=== PATIENT | female | born 1950 | race Caucasian/White ===

== ENCOUNTER 2017-10-11 21:29 | Inpatient (IN) | payer OTHER, MEDICARE ==
[~2017-10-11] VITALS: Ht 167.6 cm; Wt 70.6 kg
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
[2017-10-11 21:30] VITALS: BP 208/90
[2017-10-11] MEDS ORDERED: METFORMIN500 MG PO (21:34)
[2017-10-11 21:45] LABS: BILIRUBIN NEGATIVE (NEGATIVE); BLOOD TRACE-INTACT (NEGATIVE); CLARITY SL CLOUDY (CLEAR); COLOR YELLOW (YELLOW); GLUCOSE 3+ (NEGATIVE); KETONE NEGATIVE (NEGATIVE); LEUKO ESTERASE NEGATIVE (NEGATIVE); NITRITE NEGATIVE (NEGATIVE); SPECIFIC GRAVITY 1.015 (1.005-1.030)
[2017-10-11 21:59] LABS: BACTERIA TRACE; WBC 0-2 wbc/hpf (0-5)
[2017-10-11 22:03] LABS: URINE AMPHETAMINES < 1000 (1000ng/ml); URINE BARBITURATES < 200 (200ng/ml); URINE BENZODIAZEPINES < 200 (200ng/ml); URINE CANNABINOIDS (THC) < 50 (50ng/ml); URINE COCAINE < 300 (300ng/ml); URINE METHADONE < 300 (300ng/ml); URINE OPIATES < 300 (300ng/ml)
[2017-10-11 22:04] LABS: URINE PHENCYCLIDINE < 25 (25ng/ml)
[2017-10-11 22:05] LABS: BASO # 0.1 10*3/uL (0.0-0.1); BASO % 1.2 % (0.0-1.0); EOS # 0.2 10*3/uL (0.0-0.4); EOS % 2.8 % (1.0-4.0); HEMATOCRIT 32.8 % (37.0-47.0); HEMOGLOBIN 11.3 g/dl (12.0-16.0); LYMPH # 1.4 10*3/uL (1.3-4.4); LYMPH % 23.5 % (27.0-41.0); MEAN CELL VOLUME 84.5 fl (81.0-99.0); MEAN CORPUSCULAR HGB 29.1 pg (27.0-31.0); MEAN CORPUSCULAR HGB CONC 34.5 g/dl (33.0-37.0); MEAN PLATELET VOLUME 9.6 fl (9.6-12.3); MONO # 0.5 10*3/uL (0.1-1.0); MONO % 7.7 % (3.0-9.0); NEUT # 3.9 10*3/uL (2.3-7.9); NEUT % 64.6 % (47.0-73.0); PLATELET COUNT AUTOMATED 220 10*3/uL (130-400); RED BLOOD COUNT 3.88 10*6/uL (4.10-5.10); RED CELL DISTRI WIDTH 12.8 % (0-14.5)
[2017-10-11 22:15] LABS: ACT PARTIAL THROMBO TIME 22.7 SECONDS (20.8-31.5)
[2017-10-11 22:23] LABS: ALBUMIN 3.5 gm/dl (3.1-4.5); ALKALINE PHOSPHATASE 122 U/L (45-117); BUN 14 mg/dl (7-24); CHLORIDE 105 mmol/L (98-107); CREATININE 1.17 mg/dL (0.55-1.02); POTASSIUM 3.4 mmol/L (3.5-5.1); SGOT/AST 11 IU/L (3-35); SGPT/ALT 17 U/L (12-78); SODIUM 140 mmol/L (136-145)
[2017-10-11 22:27] LABS: ACETAMINOPHEN (TYLENOL) < 2.0 ug/ml (10-30); ETHYL ALCOHOL < 3.0 mg/dl (<3); TROPONIN I < 0.015 ng/ml (<0.045)
[2017-10-11 22:30] VITALS: BP 174/78
[2017-10-11 23:30] VITALS: BP 182/92
[2017-10-12] VITALS: BP 182/92
[2017-10-12 03:37] LABS: BASO # 0.1 10*3/uL (0.0-0.1); EOS # 0.2 10*3/uL (0.0-0.4); EOS % 2.2 % (1.0-4.0); HEMATOCRIT 28.7 % (37.0-47.0); HEMOGLOBIN 9.8 g/dl (12.0-16.0); LYMPH % 29.3 % (27.0-41.0); MEAN CELL VOLUME 84.9 fl (81.0-99.0); MEAN CORPUSCULAR HGB CONC 34.1 g/dl (33.0-37.0); MEAN PLATELET VOLUME 9.2 fl (9.6-12.3); MONO # 0.5 10*3/uL (0.1-1.0); MONO % 7.7 % (3.0-9.0); NEUT # 4.1 10*3/uL (2.3-7.9); NEUT % 59.5 % (47.0-73.0); PLATELET COUNT AUTOMATED 183 10*3/uL (130-400); RED BLOOD COUNT 3.38 10*6/uL (4.10-5.10); RED CELL DISTRI WIDTH 12.8 % (0-14.5); WHITE BLOOD COUNT 6.9 10*3/uL (4.8-10.8)
[2017-10-12 03:58] LABS: ALKALINE PHOSPHATASE 97 U/L (45-117); BUN 16 mg/dl (7-24); CHLORIDE 107 mmol/L (98-107); CHOLESTEROL 186 mg/dL (<200); CREATININE 1.04 mg/dL (0.55-1.02); HDL CHOLESTEROL 34 mg/dl (40-60); LDL CHOLESTEROL 121 mg/dL (9-159); PHOSPHOROUS 2.9 mg/dL (2.5-4.9); POTASSIUM 3.7 mmol/L (3.5-5.1); SGOT/AST 6 IU/L (3-35); SGPT/ALT 15 U/L (12-78); SODIUM 140 mmol/L (136-145); TOTAL PROTEIN 6.6 gm/dL (6.4-8.2); TRIGLYCERIDES 153 mg/dl (<150); VLDL CHOLESTEROL 31 mg/dL (6-40)
[2017-10-12 04:00] VITALS: BP 168/69
[2017-10-12 04:04] LABS: THYROID STIM HORMONE (HS) 0.838 uIU/ml (0.358-4.75)
[2017-10-12 04:09] LABS: ACT PARTIAL THROMBO TIME 22.7 SECONDS (20.8-31.5)
[2017-10-12 06:39] LABS: VITAMIN D, 25-HYDROXY 10.7 ng/mL (30-100)
[2017-10-12 08:00] VITALS: BP 132/58
[2017-10-12 12:00] VITALS: BP 138/60
[2017-10-12 20:00] VITALS: BP 149/60
[2017-10-13] VITALS: BP 116/53
[2017-10-13 06:31] LABS: BASO # 0.1 10*3/uL (0.0-0.1); BASO % 0.9 % (0.0-1.0); EOS # 0.2 10*3/uL (0.0-0.4); EOS % 2.7 % (1.0-4.0); HEMATOCRIT 26.1 % (37.0-47.0); HEMOGLOBIN 8.8 g/dl (12.0-16.0); LYMPH # 2.6 10*3/uL (1.3-4.4); LYMPH % 41.1 % (27.0-41.0); MEAN CELL VOLUME 87.3 fl (81.0-99.0); MEAN CORPUSCULAR HGB 29.4 pg (27.0-31.0); MEAN CORPUSCULAR HGB CONC 33.7 g/dl (33.0-37.0); MEAN PLATELET VOLUME 9.9 fl (9.6-12.3); MONO # 0.5 10*3/uL (0.1-1.0); MONO % 7.1 % (3.0-9.0); NEUT # 3.1 10*3/uL (2.3-7.9); NEUT % 47.9 % (47.0-73.0); PLATELET COUNT AUTOMATED 164 10*3/uL (130-400); RED BLOOD COUNT 2.99 10*6/uL (4.10-5.10); RED CELL DISTRI WIDTH 13.3 % (0-14.5); WHITE BLOOD COUNT 6.4 10*3/uL (4.8-10.8)
[2017-10-13 06:55] LABS: CHLORIDE 114 mmol/L (98-107); POTASSIUM 3.4 mmol/L (3.5-5.1); SODIUM 145 mmol/L (136-145)
[2017-10-13 07:08] LABS: BUN 14 mg/dl (7-24); CREATININE 0.91 mg/dL (0.55-1.02)
[2017-10-13 08:00] VITALS: BP 210/80
[2017-10-13 12:00] VITALS: BP 140/60
[2017-10-13] MEDS ORDERED: MIRTAZAPINE15 M2 PO (16:56)
[2017-10-13] MEDS ORDERED: LISINOPRIL10 M1 PO (16:56)
[2017-10-13] MEDS ORDERED: CARVEDILOL3.125 MG PO (16:56)
[2017-10-13] MEDS ORDERED: NATURE'S BLEND F1 MG PO (16:56)
[2017-10-13] MEDS ORDERED: VITAMIN D-32000 UNIT PO (16:56)
== END 2017-10-13 17:10 | disposition home health service (06) | DRG 637 ==
LOC: ED 21:29 → EDHOLD 22:51 → 4E 22:51
PROVIDERS: Internal Medicine; Student in an Organized Health Care Education/Training Program
DX: E11.65 Type 2 diabetes mellitus with hyperglycemia (principal); N17.0 Acute kidney failure with tubular necrosis; G93.41 Metabolic encephalopathy; E44.0 Moderate protein-calorie malnutrition; F33.2 Major depressive disorder, recurrent severe without psychotic features; I16.1 Hypertensive emergency; R55 Syncope and collapse; E86.0 Dehydration; D64.9 Anemia, unspecified; E87.6 Hypokalemia; R31.29 Other microscopic hematuria; E66.3 Overweight; E78.5 Hyperlipidemia, unspecified; E55.9 Vitamin D deficiency, unspecified; E53.8 Deficiency of other specified B group vitamins; V49.88XA Car occupant (driver) (passenger) injured in other specified transport accidents, initial encounter; Y93.89 Activity, other specified; Z68.26 Body mass index [BMI] 26.0-26.9, adult; Y92.481 Parking lot as the place of occurrence of the external cause; Y99.8 Other external cause status

== ENCOUNTER 2017-10-13 16:46 | Inpatient (IN) | payer MEDICARE, OTHER ==
[~2017-10-13] VITALS: Ht 167.6 cm; Wt 73.5 kg
--- NOTE | ~2017-10-13 | PR ---
[place], [place] PROGRESS NOTE [id number] UNIT #: [id number] ROOM: 311 DOCTOR: BROOKS CHOUDHURY MD BIRTHDATE: [birth year] DOS: 10/24/2017 PSYCHIATRIC PROGRESS NOTE SUBJECTIVE: The patient seen and spoke with the staff. Per staff, the patient is doing good. No problems or issues. Medication compliant. She slept well last night. I easily redirectable. The patient was pleasant and cooperative. She was in the day area. She reports doing "fine." She denied depressed mood or hopelessness. Denied any other neurovegetative signs and symptoms of depression. She reports good sleep and appetite. MENTAL STATUS EXAMINATION: Pleasant, cooperative, described her mood as "fine." Affect, mood congruent. Thought process goal directed. No flight of ideas, loosening of association. She denied auditory or visual hallucination. No delusions or paranoia noted. She denied suicidal ideation, intent or plan. She also denied any homicidal ideation, intent or plan. PLAN:: 1. Continue current medication and care. 2. Encourage activity in groups. 3. Final medication management and discharge plan per the regular team. BROOKS CHOUDHURY MD CM:PNTRANS 35 [phone] BROOKS CHOUDHURY MD 10/24/172235 interface
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
--- NOTE | ~2017-10-13 | PR ---
[place], [place] PROGRESS NOTE NAME: [facility]ON [id number] UNIT #: [id number] ROOM: 311 DOCTOR: BROOKS CHOUDHURY MD BIRTHDATE: [birth year] DOS: SUBJECTIVE: The patient seen and spoke with the staff. Per staff, patient has slept well, calm and cooperative, some confusion. No behavior problems or issues, slept well last night. The patient was pleasant and cooperative. She was in the day area. She reports doing well. She reports good sleep and appetite. Denied depressed mood or hopelessness. Denied any other neurovegetative signs, symptoms of depression. She was not in any distress. MENTAL STATUS EXAMINATION: The patient was pleasant and cooperative. She was alert, oriented to month and year. She described her mood as "fine." Affect, mood congruent. Thought process goal directed. No flight of ideas or loosening of association. She denied auditory or visual hallucination. No delusion or paranoia noted. She denied suicidal ideation, intent or plan. She also denied homicidal ideation, intent or plan. PLAN: 1. Continue current medication and care. 2. Encourage activities and groups. 3. Continue redirection and supportive care. BROOKS CHOUDHURY MD CM:PNTRANS [id number] BROOKS CHOUDHURY MD 10/24/17 0519 interface
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
--- NOTE | ~2017-10-13 | PR ---
[place], [place] PROGRESS NOTE NAME: [id number] UNIT #: [id number] ROOM: 311 DOCTOR: LUCIA BOYER DO BIRTHDATE: [birth year] DOS: 10/20/2017 CHIEF COMPLAINT: "I feel tired." SUMMARY OF VISIT: The patient was interviewed in dining room where she was participating in group. She continues to respond but her memory does appear to fluctuate. Generally, she alert and oriented to person, not to time or place. Her sister did come in to visit her yesterday and she commented about that. Continued to discuss increasing her strength and attempting to get her into rehab to help strengthen her. MENTAL STATUS: She remains alert and oriented to self with improved mood. There are memory changes, seem to occur throughout the day. There are no symptoms of giovanna or hypomania, no delusions or paranoia at this time. PLAN: We will continue her current psychotropic regimen at this time and continue to monitor the patient and encourage her in group and individual activities, returning to the least restrictive environment when psychiatrically stable. LUCIA BOYER DO ELIZABETH LEROY MD CM:PNLEOLA 1145 1349 LUCIA BOYER DO 10/20/17 1348 interface
--- NOTE | ~2017-10-13 | PR ---
[place], [place] PROGRESS NOTE NAME: JACI JOHNSON UNIT #: [id number] ROOM: 311 DOCTOR: ELIZABETH LEROY MD BIRTHDATE: [birth year] DOS: 10/16/2017 CHIEF COMPLAINT: "I hope I get to go home soon." SUMMARY OF THE VISIT: The patient was interviewed as she sat with some female peers watching television. She stopped and engaged in conversation. At this time, she appeared to be alert and oriented times 3. She was bright, pleasant and conversant. She was able to tell me how long she has been in the hospital, what she had for breakfast. She is anxious to return home stating that she lives close to her sister. Of note is her mental status seems to fluctuate. Nurses' notes indicate that she was alert to person only late last evening and was very confused. My other exams prior to this one this morning, have also been . She is alert to person, may be place and that she knows she is in the hospital, but not which hospital. I do fear that this could be potentially Lewy body dementia given the marked fluctuation in her sensorium. She is tolerating the current medication regimen well. MENTAL STATUS: She is alert and oriented times 3. Mood does seem to be trending towards euthymia. Affect is more appropriate. There is no giovanna, hypomania or psychosis. This morning during my exam, she seemed with fairly decent memory. PLAN: I will go ahead and augment the Exelon patch with Namenda 5 mg in the day and plan to bring this gradually up as needed and as tolerated. We will continue to document her mental status fluctuations. Truly if she is having periods where she is alert only to self, she cannot return home, need to make certain that we make recommendations for the safest possible disposition for her upon discharge. ELIZABETH LEROY MD CM:PNTRANS [id number] ELIZABETH LEROY MD 10/16/17 1119 interface
--- NOTE | ~2017-10-13 | PR ---
[place], [place] PROGRESS NOTE NAME: JACI JOHNSON UNIT #: [id number] ROOM: 311 DOCTOR: ELIZABETH LEROY MD BIRTHDATE: [birth year] DOS: 10/17/2017 CHIEF COMPLAINT: "I want to go home, will I be able to go home soon?" SUMMARY OF THE VISIT: The patient was interviewed as she sat in the dining room amongst female peers. She engaged readily in conversation. She reports that she is anxious to return home. She could not tell me this morning how long she has been here. When asked if her sister had visited, she told me no. Quickly, one of the female peers that were sitting next to her told her that this was not true named her sister's name and stated that she was here yesterday and had a lengthy visit with her. The patient shrugged her shoulders and stated I forget a lot. MENTAL STATUS: She is alert and oriented to person, possibly place, not to time this morning. She is rather vague and limited in her responses, more confused this morning than yesterday. She is tolerating the current medication regimen well. I see no giovanna, hypomania or psychosis. Short term memory is poor and she processes at times slowly. PLAN: I will increase Namenda from 5 mg a day to 5 mg twice a day, increase Exelon patch to its maximum dose of 13.3 mg daily, engage in individual and kulkarni milieu activities with the plan to return to the least restrictive environment when psychiatrically stable. ELIZABETH LEROY MD CM:PNTRANS ELIZABETH LEROY MD 10/17/1725 interface
--- NOTE | ~2017-10-13 | CON ---
[place], [place] REPORT OF CONSULTATION NAME: JACI JOHNSON UNIT #: [id number] ROOM: 311 DOCTOR: LOUIS DIANA ED.D (JUAN JOSE) BIRTHDATE: [birth year] DOS: 10/18/2017 HISTORY OF PRESENT ILLNESS: The patient is a 66-year-old female referred by Dr. Leroy for competency evaluation. At the present time, she is on the [facility] at [facility]. The patient states she is single and has no children. She has 4 sisters; however. Her family physician is Dr. Ku and her medical history is pertinent for diabetes mellitus, congestive heart failure, hypertension, vitamin D deficiency and dementia -- Alzheimer's type. Her medications include Namenda, Exelon, lisinopril, vitamin D. The patient states she drinks no alcoholic beverages and smokes no cigarettes or use any tobacco related products. 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 This patient was awake, alert and oriented to person only. She believes she was in [place], [place] and she stated that it is 2016. I asked her why she was in [place]; she stated she comes here once a year. She is clearly not competent to make informed healthcare decisions. Her short and long-term memory appear to be impaired and she also has some hallucinations. In my opinion, all decision should be made by her healthcare power of patent prosecution attorney. DIAGNOSIS: Major neurocognitive disorder -- Alzheimer's dementia. Thank you very much for this consult. LOUIS DIANA ED.D CM:CONSTR:REPORT OF CONSULTATION 1148 10/18/17 1209 interface ELIZABETH LEROY MD
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
--- NOTE | ~2017-10-13 | PR ---
[place], [place] PROGRESS NOTE NAME: JACI JOHNSON UNIT #: [id number] ROOM: 311 DOCTOR: ELIZABETH LEROY MD BIRTHDATE: [birth year] DOS: 10/18/2017 CHIEF COMPLAINT: "____" SUMMARY OF THE VISIT: The patient was interviewed in the dining room where she was sitting with several female peers. She continues to be rather bright and tries to confabulate. She does still seem to have a fluctuation in her mental status and this morning, she was alert and oriented to person, not necessarily place and certainly not time. It is becoming more and more evident that she has a significant cognition issue and family has been very concerned about this and hopeful that we will help with placement. MENTAL STATUS: She remains alert and oriented to self only at the present time. Mood though does seem to be brighter. Affect more appropriate. There is no giovanna or psychosis noted at this time. She does make some bizarre statements though and this may be more related to her cognitive decline. Short-term memory is extremely poor. PLAN: I will go ahead and increase Namenda to 10 mg in the morning and 5 mg at night, augmenting the effectiveness of the Exelon. Continue to engage in individual and kulkarni milieu activities, returning to the least restrictive environment when psychiatrically stable. ELIZABETH LEROY MD CM:PNTRANS [id number] ELIZABETH LEROY MD 10/19/17 0646 interface
--- NOTE | ~2017-10-13 | PR ---
[place], [place] PROGRESS NOTE NAME: [id number] UNIT #: [id number] ROOM: 311 DOCTOR: LUCIA BOYER DO BIRTHDATE: [birth year] DOS: 10/21/2017 CHIEF COMPLAINT: "I feel okay." SUMMARY OF VISIT: The patient was interviewed in the dining kaur. She states that she appears to be better. We discussed returning to ____ and discussed strengthening of her muscles and working with PT and OT. Her mood did appear to change as we discussed her discharge potentially. MENTAL STATUS: She remains alert and oriented to self with improved mood. There are memory changes that appear to occur throughout the day and no symptoms of giovanna or hypomania without delusions or paranoia at this time. PLAN: I will continue her current psychotropic regimen at this time and continued to monitor the patient and ____ according to staff, her mood appeared to be somewhat depressed at the news that we are planning for her discharge. She states that she is very comfortable here and likes it. We will plan to encourage her in group and individual activities, returning to the least restrictive environment when psychiatrically stable. LUCIA BOYER DO ELIZABETH LEROY MD CM:PNLEOLA [id number] LUCIA BOYER DO 10/22/17 0235 interface
--- NOTE | ~2017-10-13 | PR ---
[place], [place] PROGRESS NOTE [id number] UNIT #: [id number] ROOM: 311 DOCTOR: LUCIA BOYER DO BIRTHDATE: [birth year] DOS: 10/19/2017 CHIEF COMPLAINT: "I cannot remember my sister visiting." SUMMARY OF THE VISIT: The patient was interviewed in the dining room where she finished her breakfast. She continues to be bright with confabulations. Her memory does seem to fluctuate. She is generally alert and oriented to person but not to time or place. She states that she does not remember that her sister had come in to see her. We discussed she needs to improve her strength and discussed potentially getting her into a rehab. MENTAL STATUS: She remains alert and oriented to self only. Mood does seem to be brighter. Her memory does seem to change throughout the day. There are no symptoms of giovanna or hypomania at this time. There are no symptoms of delusions, paranoia. PLAN: We will renew her Ativan as needed and increase her Namenda to 10 mg twice daily and continue to monitor to maximize the potential benefits. We will continue to engage her in individual and group activities, returning to the least restrictive environment when psychiatrically stable. LUCIA BOYER DO ELIZABETH LEROY MD CM:PNLEOLA [id number] LUCIA BOYER DO 10/19/17 1231 interface
--- NOTE | ~2017-10-13 | PR ---
[place], [place] PROGRESS NOTE NAME: [id number] UNIT #: [id number] ROOM: 311 DOCTOR: ELIZABETH LEROY MD BIRTHDATE: [birth year] DOS: 10/25/2017 CHIEF COMPLAINT: "Oh, good morning there, how are you?" SUMMARY OF THE VISIT: The patient was interviewed in the dining area where she had just completed breakfast. She engaged readily in conversation. She reported no issues. She reports good sleep and appetite. She could not tell me how long she has been here or why she was actually in the hospital. MENTAL STATUS: She is alert and oriented to person, possibly place, not time. Mood does seem to be trending towards euthymia. Affect is more appropriate. There is no giovanna, hypomania or psychosis. Short term memory remains poor. PLAN: I will maintain her current psychotropic regimen, continue to engage in individual and kulkarni milieu activity, planning to discharge then to the least restrictive environment when psychiatrically stable. ELIZABETH LEROY MD CM:PNTRANS [id number] ELIZABETH LEROY MD 10/25/17 1129 interface
[~2017-10-13 16:46] MED LIST: METFORMIN500 MG PO
[2017-10-13] MEDS ORDERED: LISINOPRIL10 M1 PO (16:56)
[2017-10-13] MEDS ORDERED: VITAMIN D-32000 UNIT PO (16:56)
[2017-10-13] MEDS ORDERED: CARVEDILOL3.125 MG PO (16:56)
[2017-10-13] MEDS ORDERED: MIRTAZAPINE15 M2 PO (16:56)
[2017-10-13] MEDS ORDERED: NATURE'S BLEND F1 MG PO (16:56)
[2017-10-13 17:40] VITALS: BP 204/92
[2017-10-13 20:00] VITALS: BP 150/61
[2017-10-14 07:32] LABS: BASO % 0.7 % (0.0-1.0); EOS # 0.1 10*3/uL (0.0-0.4); EOS % 1.3 % (1.0-4.0); HEMOGLOBIN 9.4 g/dl (12.0-16.0); LYMPH % 32.8 % (27.0-41.0); MEAN CELL VOLUME 88.9 fl (81.0-99.0); MEAN CORPUSCULAR HGB 29.8 pg (27.0-31.0); MEAN CORPUSCULAR HGB CONC 33.6 g/dl (33.0-37.0); MEAN PLATELET VOLUME 10.1 fl (9.6-12.3); MONO # 0.4 10*3/uL (0.1-1.0); MONO % 6.5 % (3.0-9.0); NEUT # 3.5 10*3/uL (2.3-7.9); NEUT % 58.4 % (47.0-73.0); PLATELET COUNT AUTOMATED 180 10*3/uL (130-400); RED BLOOD COUNT 3.15 10*6/uL (4.10-5.10); RED CELL DISTRI WIDTH 13.5 % (0-14.5)
[2017-10-14 07:45] LABS: BUN 18 mg/dl (7-24); CHLORIDE 113 mmol/L (98-107); CREATININE 1.02 mg/dL (0.55-1.02); POTASSIUM 4.1 mmol/L (3.5-5.1); SODIUM 143 mmol/L (136-145)
[2017-10-14 08:58] VITALS: BP 180/84
[2017-10-14 21:02] VITALS: BP 156/73
[2017-10-15 07:26] VITALS: BP 154/72
[2017-10-15 20:22] VITALS: BP 168/70
[2017-10-15 23:25] VITALS: BP 130/70
[2017-10-16 07:23] VITALS: BP 138/56
[2017-10-16 19:34] VITALS: BP 149/64
[2017-10-17 07:23] VITALS: BP 155/64
[2017-10-17 19:44] VITALS: BP 148/66
[2017-10-18 07:54] VITALS: BP 146/66
[2017-10-18 20:00] VITALS: BP 140/60
[2017-10-19 08:04] VITALS: BP 152/53
[2017-10-19 19:38] VITALS: BP 155/58
[2017-10-20 09:25] VITALS: BP 128/78
[2017-10-20 20:09] VITALS: BP 148/66
[2017-10-21 08:42] VITALS: BP 137/58
[2017-10-21 21:11] VITALS: BP 170/64
[2017-10-22 08:00] VITALS: BP 160/62
[2017-10-22] MEDS ORDERED: EXELON13.3 MG/21 T (08:53)
[2017-10-22] MEDS ORDERED: MIRTAZAPINE15 M2 PO (08:54)
[2017-10-22] MEDS ORDERED: MEMANTINE HCL10 MG PO (08:54)
[2017-10-22 21:09] VITALS: BP 156/62
[2017-10-23 08:22] VITALS: BP 150/80
[2017-10-23 19:49] VITALS: BP 155/80
[2017-10-24 07:56] VITALS: BP 144/63
[2017-10-24 21:00] VITALS: BP 200/90
[2017-10-24 22:00] VITALS: BP 156/72
[2017-10-25 03:40] VITALS: BP 138/68
[2017-10-25 07:49] VITALS: BP 144/63
== END 2017-10-25 15:52 | disposition other institution (70) | DRG 885 ==
LOC: 3N 16:46
PROVIDERS: Internal Medicine
DX: F33.2 Major depressive disorder, recurrent severe without psychotic features (principal); N17.9 Acute kidney failure, unspecified; E11.65 Type 2 diabetes mellitus with hyperglycemia; I50.32 Chronic diastolic (congestive) heart failure; I11.0 Hypertensive heart disease with heart failure; G30.9 Alzheimer's disease, unspecified; F01.50 Vascular dementia, unspecified severity, without behavioral disturbance, psychotic disturbance, mood disturbance, and anxiety; D64.9 Anemia, unspecified; E78.5 Hyperlipidemia, unspecified; E66.9 Obesity, unspecified; E55.9 Vitamin D deficiency, unspecified; E53.8 Deficiency of other specified B group vitamins; E66.3 Overweight; Z68.26 Body mass index [BMI] 26.0-26.9, adult; Z82.49 Family history of ischemic heart disease and other diseases of the circulatory system; Z89.611 Acquired absence of right leg above knee; Z79.899 Other long term (current) drug therapy